=== PATIENT | male | born 1950 | race Hispanic/Latino ===

== ENCOUNTER → 2018-05-03 | Outpatient (RCR) | payer MEDICARE, OTHER | LOC: PT 05-01 10:01 | PROVIDERS: ATTEND Specialist | DX: M17.0 Bilateral primary osteoarthritis of knee (principal); M62.81 Muscle weakness (generalized) ==

== ENCOUNTER 2018-05-24 10:00 | Outpatient (RCR) | payer MEDICARE, OTHER | END 2018-05-31 | LOC: PT 10:00 | PROVIDERS: ATTEND Specialist | DX: M17.0 Bilateral primary osteoarthritis of knee (principal); M62.81 Muscle weakness (generalized) | CPT/HCPCS: 97139 ==